=== PATIENT | female | born 1965 | race Caucasian/White ===

== ENCOUNTER 2024-04-16 04:30 | Emergency (ER) | payer OTHER ==
[~2024-04-16] VITALS: Ht 165.1 cm; Wt 90.0 kg
[2024-04-16 04:33] VITALS: O2SAT 97
[2024-04-16 06:31] LABS: BASOPHILS % 0.7 % (0.0-2.0); HEMATOCRIT. 36.3 % (36.0-48.0); HEMOGLOBIN. 12.1 g/dL (12.0-16.0); MEAN CORPUSCULAR HEMOGLOBIN 30.2 pg (28.0-32.0); MEAN CORPUSCULAR HGB CONC 33.4 g/dL (31.0-37.0); MEAN CORPUSCULAR VOLUME 90.2 fL (81.0-99.0); MEAN PLATELET VOLUME 10.6 fl (7.4-10.4); MONOCYTES % 8.2 % (2.0-8.0); NEUTROPHILS % 54.1 % (40.0-76.0); PLATELET 233 x1000/uL (130-400); RED BLOOD CELL COUNT 4.02 mill/uL (4.2-5.4); WHITE BLOOD COUNT 10.8 x1000/uL (4.5-11.0)
[2024-04-16 06:41] LABS: CHLORIDE 100 mEq/L (98-107); POTASSIUM 3.9 mEq/L (3.5-5.1); SODIUM 135 mEq/L (136-145)
[2024-04-16 06:42] LABS: CALCIUM 9.7 mg/dL (8.7-10.4); CARBON DIOXIDE 27 mEq/L (21-32)
[2024-04-16 06:47] LABS: CREATININE 1.7 mg/dL (0.6-1.0); GLUCOSE 142 mg/dL (70-105); UREA NITROGEN BLOOD 28 mg/dL (9-23)
[2024-04-16 06:48] LABS: TROPONIN I HIGH SENSITIVITY 4 ng/L (3.0-34)
[2024-04-16 14:40] VITALS: BP 95/52; PULSE 88; RESP 20; TEMP 36.89184; O2SAT 97
== END 2024-04-16 15:25 | disposition left against medical advice (07) ==
LOC: ER 04:30 → EDBEDREQ 13:20 → ER 15:25
DX: I10 Essential (primary) hypertension (principal); E11.9 Type 2 diabetes mellitus without complications; Z86.73 Personal history of transient ischemic attack (TIA), and cerebral infarction without residual deficits
CPT/HCPCS: 80048; 83880; 85025; 84484; 36415; 71045; 93005; 99285; Z7610